=== PATIENT | female | born 1955 | race Caucasian/White ===

== ENCOUNTER 2023-01-08 18:21 | Emergency (ER) | payer MEDICARE, MEDICAID ==
[~2023-01-08] VITALS: Ht 157.5 cm; Wt 64.5 kg
[2023-01-08 18:46] VITALS: BP 127/73
[2023-01-08] MEDS ORDERED: KETOROLAC 60MG/2ML VIAL IM ONE (21:00)
[2023-01-08] MEDS ORDERED: CYCL5TAB MT (22:14)
[2023-01-08] MEDS ORDERED: IBUP-2028 MT (22:14)
== END 2023-01-08 22:22 | disposition home or self-care (01) ==
LOC: ER 18:21
DX: M25.511 Pain in right shoulder (principal); R51.9 Headache, unspecified; E78.00 Pure hypercholesterolemia, unspecified
CPT/HCPCS: 73030; 96372; 99283; J1885